=== PATIENT | male | born 1995 | race African-American/Black ===

== ENCOUNTER 2024-09-14 23:14 | Inpatient (IN) | payer OTHER, SELFPAY ==
--- NOTE | 2024-09-14 | ECG_ITS ---
Test Reason : TACHYCARDIA Blood Pressure : */* mmHG Vent. Rate : 160 BPM Atrial Rate : * BPM P-R Int : * ms QRS Dur : 118 ms QT Int : 292 ms P-R-T Axes : * 33 -29 degrees QTcB Int : 476 ms Atrial fibrillation with rapid ventricular response Nonspecific ST and T wave abnormality Abnormal ECG No previous ECGs available Referred By: Generic ED Physician Electronically Signed By: CANDIE BREWER MD
[2024-09-14 23:18] VITALS: BP 150/93; PULSE 112; RESP 18; TEMP 36.6; O2SAT 96; BMI 34.4
[2024-09-14 23:40] VITALS: BP 169/94; PULSE 165; RESP 20
--- NOTE | 2024-09-14 23:42 | ED.ARRPALP ---
HPI - Arrhythmia/Palpitations General Chief Complaint: Arrhythmia/Palpitations Stated Complaint: increased heart rate Time Seen by Provider: 09/14/24 23:34 Source: patient Mode of arrival: ambulatory Limitations: no limitations History of Present Illness ED Provider: Dr. Giulia Xiong HPI narrative: Patient comes to the emergency room complaining of palpitations, mild shortness of breath. Patient states that his symptoms started approximately 40 minutes ago while he was sitting. Patient denies any chest pain. Denies any abdominal pain. Denies fever chills. Related Data Allergies Allergy/AdvReac Type Severity Reaction Status Date / Time No Known Allergies Allergy Verified 09/14/24 23:20 Review of Systems Review of Systems: Constitutional : No Weight loss, No Fever, No Chills, No Night Sweats, No Fatigue, No Malaise ENT/Mouth : No Hearing loss, No Ear Pain, No Nasal Congestion, No Sinus Pain, No Hoarseness, No sore throat, No Rhinorrhea, No Swallowing Difficulty Eyes: No Eye Pain, No Swelling, No Redness, No Foreign Body, No Discharge, No Vision Changes Cardiovascular : No Chest Pain, complaining of mild SOB, Complaining of palpitations Respiratory : No Cough, No Sputum, No Wheezing, No Smoke Exposure, No Dyspnea Gastrointestinal : No Nausea, No Vomiting, No Diarrhea, No Constipation, No abdominal Pain, No Hematochezia, No Melena Genitourinary : no irregular bleeding, No Dysuria, No Urinary Frequency, No Hematuria, No Urinary Incontinence, No Urgency, No Flank Pain, No Urinary Flow Changes, No Hesitancy Musculoskeletal : No joint pain, No Myalgias, No Joint Swelling Skin : No Skin Lesions, No rash Neuro : No Weakness, No Numbness, No Paresthesias, No Loss of Consciousness, No Dizziness, No Headache Psych : No Anxiety/Panic, No Depression, No SI/HI/AH/VH, No Social Issues, Heme/Lymph: No Bruising, No Bleeding,No Lymphadenopathy Endocrine : No Polyuria, No Polydipsia, No Temperature Intolerance [facility] Past Medical History Medical History (Updated 09/15/24 @ 02:01 by Giulia Xiong MD) Hypertension Social History Social History Alcohol intake: current Alcohol intake frequency: a few times a week Smoked in Last 30 Days: No Use of substances other than those prescribed or required for medical reasons: No Advance Directives: No Advance Directives Information Provided: Yes Do you have a plan to hurt others: No Plan Physical Exam Vital Signs: Vital Signs: Last Vital Signs Temp 98.4 F 09/15/24 01:40 Pulse 126 H 09/15/24 01:40 Resp 20 09/15/24 01:40 BP 153/92 H 09/15/24 01:40 Pulse Ox 97 09/15/24 00:16 O2 Del Method Room Air 09/15/24 01:40 BMI result Body Mass Index 34.4 Const: Other: Appearance: Alert. Oriented X3. No acute distress. Eyes: Pupils equal, round and reactive to light. ENT: Pharynx normal. Neck: Normal inspection. Neck supple. No lymph nodes noted. No crepitus CVS: heart rate irregularly irregular, Pulses normal. Normal S1 and S2 Respiratory: No respiratory distress. Breath sounds normal. No Wheezing. No rales Abdomen: Soft and nontender. No rigidity. No distention. Skin: Skin warm and dry. Normal skin color. Normal skin turgor. Extremities: No lower extremity edema. No Lacerations. No Rash Neuro: Oriented X 3. No motor deficit. No sensory deficit. Moving all extremities. No slurred speech. CN 2 through 12 grossly intact Psych: calm, cooperative, normal affect Course Course Course Narrative: patient's heart rate between 160 and 170, EKG shows atrial fibrillation patient receiving 5 mg of metoprolol IV Medications Administered Discontinued Medications Generic Name Dose Route Start Last Admin Trade Name Freq PRN Reason Stop Dose Admin Diltiazem HCl 10 mg 09/15/24 01:32 09/15/24 01:36 Diltiazem Hcl 50 Mg/10 Ml Vial IVPUSH 09/15/24 01:33 10 mg STAT STA Administration Metoprolol Tartrate 5 mg 09/14/24 23:41 09/14/24 23:47 Metoprolol Tartrate 5 Mg/5 Ml Vial IVPUSH 09/14/24 23:42 5 mg ONCE ONE Administration Protocol Metoprolol Tartrate 5 mg 09/15/24 00:31 09/15/24 00:42 Metoprolol Tartrate 5 Mg/5 Ml Vial IVPUSH 09/15/24 00:32 5 mg ONCE ONE Administration Protocol Medical Decision Making Medical Decision Making MDM Narrative: my interpretation of EKG: Atrial fibrillation, heart rate 160, no significant ST changes, QTC 476 patient receiving 5 mg of IV metoprolol patient's heart rate improved from 170s to 130s. Then, patient received a 2nd dose of 5 mg of IV metoprolol. Total of 10. Heart rate still between 120s and 130s. Blood pressure in the 150s, patient not receiving 1 dose of IV Cardizem My interpretation of labs: No significant abnormality in patient's hematology and chemistry, normal troponin. Patient's LFTs are a bit elevated, possible fatty liver. Patient instructed to follow-up outpatient with his PCP. Troponin negative patient's chest to Vasc score is 1 point ( hypertension), oral anticoagulation not indicated after IV Cardizem and 10 mg of metoprolol, patient's heart rate is in the 80s to 100s. Still in AFib. I discussed the patient with Dr. Phipps, patient being admitted Differential Diagnosis Differential Diagnoses: The differential diagnosis associated with the presentation includes ( AFib with RVR, a flutter, SVT) Admission/Observation Consideration of admission/observation: Escalation of care including admission/observation considered Consult Healthcare Provider Management of the patient was discussed with: Hospitalist Lab Data MDM Lab Attestation statement: I reviewed the patient's lab results. 09/14/24 23:40 09/14/24 23:40 Labs: Lab Results 09/14/24 Range/Units 23:40 WBC 8.6 (4.8-10.8) X10*3/uL RBC 5.48 (4.60-5.80) X10*6/uL Hgb 15.6 (14.0-18.0) g/dl Hct 44.8 (42.0-52.0) % MCV 81.8 (80.0-98.0) fL MCH 28.5 (27.0-33.0) pg MCHC 34.8 (31.0-36.0) g/dl RDW 11.8 (11.0-16.0) % Plt Count 317 (160-400) X10*3/uL MPV 9.6 (9.4-12.4) fL Immature Gran % (Auto) 0.2 (0.0-0.4) % Neut % (Auto) 52.3 (45-73) % Lymph % (Auto) 38.2 (20-40) % [place] % (Auto) 7.2 (2-11) % Eos % (Auto) 1.5 (0-4) % Baso % (Auto) 0.6 (0-2) % Lymph # (Auto) 3.3 (1.2-4.9) X10*3/uL [place] # (Auto) 0.6 (0.1-1.2) X10*3/uL Eos # (Auto) 0.1 (0.0-0.4) X10*3/uL Baso # (Auto) 0.1 (0.0-0.2) X10*3/uL Abs Immat Gran (auto) 0.02 (0.00-0.03) X10*3/uL Absolute Neuts (auto) 4.5 (2.0-8.3) x10*3/uL Absolute Nucleated RBC 0.000 (0.0-0.012) X10*3/uL Nucleated RBC % (auto) 0.0 (0.0-0.2) /100WBC Sodium 140 (135-145) mmol/L Potassium 3.7 (3.3-5.1) mmol/L Chloride 100 (96-108) mmol/L Carbon Dioxide 29 (22-29) mmol/L Anion Gap 15 (12-20) BUN 12 (9-16) mg/dL Creatinine 1.21 (0.5-1.4) mg/dL Estim Creat Clear Calc 111.2 Estimated GFR > 60 Random Glucose 130 H (60-115) mg/dL Calcium 10.5 H (8.4-10.2) mg/dL Total Bilirubin 0.3 (0.0-1.0) mg/dL AST 87 H (5-37) U/L ALT 181 H (0-40) U/L Alkaline Phosphatase 100 (39-117) U/L Troponin I High Sens < 2.7 (<3.5-35.0) ng/L Total Protein 8.5 H (6.5-8.0) g/dL Albumin 5.1 H (3.5-5.0) g/dL Independent Interpretation I performed an independent interpretation of an: EKG Critical Care Time Critical Care Time Critical Care Time: Yes Total Critical Care Time: 60 Attestation: I have personally provided critical care time. Time includes review of lab data, radiology results, discussion with consultants, and monitoring for potential decompensation. Intervention performed as documented. Discharge Plan Discharge Clinical Impression: Atrial fibrillation with RVR Patient Disposition: Admitted As Inpatient Print Language: Citizen Of [place]
[2024-09-14 23:44] LABS: Basophils Absolute Auto 0.1 X10*3/uL (0.0-0.2); Basophils Percent Auto 0.6 % (0-2); Eosinophils Absolute Auto 0.1 X10*3/uL (0.0-0.4); Eosinophils Percent Auto 1.5 % (0-4); Hematocrit 44.8 % (42.0-52.0); Hemoglobin 15.6 g/dl (14.0-18.0); Imm Gran Abs Auto 0.02 X10*3/uL (0.00-0.03); Imm Gran Pct Auto 0.2 % (0.0-0.4); Lymphocytes Absolute Auto 3.3 X10*3/uL (1.2-4.9); Lymphocytes Percent Auto 38.2 % (20-40); MANUAL DIFF FLAG NO; Mean Corpuscular HGB Conc 34.8 g/dl (31.0-36.0); Mean Corpuscular Hemoglobin 28.5 pg (27.0-33.0); Mean Corpuscular Volume 81.8 fL (80.0-98.0); Mean Platelet Volume 9.6 fL (9.4-12.4); Monocytes Absolute Auto 0.6 X10*3/uL (0.1-1.2); Monocytes Percent Auto 7.2 % (2-11); Neutrophils Absolute Auto 4.5 x10*3/uL (2.0-8.3); Neutrophils Percent Auto 52.3 % (45-73); Platelet Count 317 X10*3/uL (160-400); Red Blood Count 5.48 X10*6/uL (4.60-5.80); Red Cell Distribution Width 11.8 % (11.0-16.0); White Blood Count 8.6 X10*3/uL (4.8-10.8)
[2024-09-14] MEDS: Metoprolol Tartrate 5 MG/5 ML VIAL IVPUSH (23:47)
[2024-09-14 23:53] VITALS: BP 143/93; PULSE 138; RESP 20; O2SAT 97
[2024-09-15] VITALS (17 sets, daily range): BP systolic 120–170; BP diastolic 64–99; PULSE 71–140; RESP 15–23; TEMP 36.6–37; O2SAT 96–98
--- NOTE | 2024-09-15 | ECG_ITS ---
Test Reason : change in rhythm Blood Pressure : */* mmHG Vent. Rate : 67 BPM Atrial Rate : 67 BPM P-R Int : 180 ms QRS Dur : 94 ms QT Int : 406 ms P-R-T Axes : 43 61 32 degrees QTcB Int : 429 ms Normal sinus rhythm Normal ECG When compared with ECG of 14-Sep-2024 23:23, Sinus rhythm has replaced Atrial fibrillation Vent. rate has decreased by 93 bpm QRS duration has decreased Non-specific change in ST segment in Inferior leads ST elevation now present in Anterior leads Nonspecific T wave abnormality, improved in Inferior leads Nonspecific T wave abnormality no longer evident in Lateral leads Referred By: Raina Lowe Electronically Signed By: CANDIE BREWER MD
[2024-09-15 00:07] LABS: Alanine Aminotransferase 181 U/L (0-40); Albumin Level 5.1 g/dL (3.5-5.0); Alkaline Phosphatase 100 U/L (39-117); Anion Gap 15 (12-20); Aspartate Amino Transferase 87 U/L (5-37); Bilirubin Total 0.3 mg/dL (0.0-1.0); Blood Urea Nitrogen 12 mg/dL (9-16); Calcium 10.5 mg/dL (8.4-10.2); Carbon Dioxide 29 mmol/L (22-29); Chloride 100 mmol/L (96-108); Creatinine Clr Calc Pharmacy 111.2; Estimated Glomerular Filt Rate > 60; Glucose Random 130 mg/dL (60-115); Potassium 3.7 mmol/L (3.3-5.1); Sodium 140 mmol/L (135-145); Total Protein 8.5 g/dL (6.5-8.0)
--- NOTE | 2024-09-15 00:07 | PC.NURSE ---
pt is alert and oriented, skin appropriate for ethnicity, respirations even and unlabored, pt reports around 2300 was resting and started to feel like his heart was racing and having palpitations with slight sob, denies chest pain at this time, hr ranges from 140-160's pt denies hx of A-fib but does reports hx of HTN
[2024-09-15 00:12] LABS: Troponin-I High Sensitivity < 2.7 ng/L (<3.5-35.0)
--- OUTSIDE RECORDS SUMMARY | 2024-09-15 00:38 | XMS_ITS | Clinical Summary ---
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 Name Role Phone Unavailable Primary Care Provider Unavailabl e Allergies No known active allergies Encounters Date Type Department Care Team Description 07/17/2024 5:49 PM EDT - 07/17/2024 8:33 PM EDT Emergency [facility] Emergency Department [address] [place] [address] Discharge Disposition: Left Against Medical Advice/ AMA 07/17/2024 Travel from Last 3 Months Social History Tobacco Use Types Packs/Day Years Used Date Smoking Tobacco: Never Assessed Sex and Gender Information Value Date Recorded Sex Assigned at Male 07/17/2024 7:41 PM EDT Legal Sex Male 5:36 PM EDT Gender Identity Male 07/17/2024 7:41 PM EDT Sexual Orientation Choose not to disclose 2024 7:41 PM EDT Last Filed Vital Signs Vital Sign Reading Time Taken Comments Blood Pressure 162/93 07/17/2024 8:27 PM EDT Pulse 83 07/17/2024 8:27 PM EDT Temperature 35.9 ??C (96.7 ??F) 07/17/2024 5:48 PM ED T Respiratory Rate 17 07/17/2024 8:27 PM EDT Oxygen Saturation 97% 07/17/2024 8:27 PM EDT Inhaled Oxygen Concentration - - Weight - - Height - - Body Mass Index - - Plan of Treatment Health Maintenance Due Date Last Done Comments Hepatitis C Virus Screening 1995 HIV Screening 07/18/2008 DTaP/Tdap/Td Vaccines (1 - Tdap) 07/18/2014 Hepatitis B Vaccines (1 of 3 - 19+ 3-dose series) 07/18/2014 COVID-19 Vaccine (2023-2 5 season) 2024 Influenza Vaccine 11/30/2024 HPV Vaccines Aged Out No longer eligi ble based on patient's age to complete this topic Pneumococcal Vaccine: Pediat marleny (0-5 Years) and At-Risk Patients (6 to 49 Years) Aged Out No longer eligible b ased on patient's age to complete this topic Procedures Procedure Name Priority Date/Time Associated Diagnosis Comments ECG 12-LEAD STAT 07/17/2024 7:12 PM EDT COMPREHENSIVE METABOLIC PANEL STAT 07/17/2024 6:03 PM EDT COMPLETE BLOOD COUNT, WITH DIFFERENTIAL STAT 07/17/2024 6:03 PM EDT from Last 3 Months Results * ECG 12 lead (07/17/2024 7:12 PM EDT) [facility] Ventricular rate 71 BPM EKG [facility] Atrial rate 71 BPM EKG [facility] P-R interval 162 ms EKG [facility] QRS duration 90 ms EKG [facility] Q-T interval 380 ms EKG [facility] QTC calculation (Bazett) 413 ms EKG [facility] P axis 28 degrees EKG [facility] R axis 40 degrees EKG [facility] T axis 6 degrees EKG [facility] 07/17/2024 7:12 PM EDT Narrative EKG [facility] - 07/17/2024 8:17 PM EDT Normal sinus rhythm Normal ECG No previous ECGs available Confirmed by MD Barton Melissa () on 07/17/2024 8:17:39 PM Procedure Note Liza Barton MD - 07/17/2024 Normal sinus rhythm Normal ECG No previous ECGs available Confirmed by MD Barton Melissa () on 07/17/2024 8:17:39 PM Evaristo Escudero PA-C ECG ORDERABLES Final Result EKG [facility] * Complete Blood Count, with Differential (07/17/2024 6:03 PM EDT) White Blood Cell Count 6.6 4.0 - 11.0 Thou/uL 07/17/2024 7:05 PM EDT [facility] Platelet Count 294 150 - 450 Thou/uL 07/17[facility]2024 7[facility] Hemoglobin 15.0 13.0 - 17.7 g/dL 07/17/2024 7:05 PM [facility] Hematocrit 44.7 39.0 - 54.0 % 07/17/2024 7:05 PM [facility] Red Blood Cell Count 5.39 4.50 - 6.20 Mil/uL 07/17/2024 7:05 PM [facility] MCV 83 80 - 100 fL 07/17/2024 7:05 [facility] MCH 27.8 26.0 - 34.0 pg 07/17/2024 7:05 [facility] MCHC 33.6 30.0 - 36.0 g/dL 07/17/2024 7:05 PM [facility] RDW 11.8 11.5 - 14.5 % 07/17/2024 7:05 PM [facility] MPV 10.1 7.5 - 12.5 fL 07/17/2024 7:05 PM [facility] Neutrophils Auto 51.3 % 07/18/19 7:05 PM EDT [facility] Immature Granulocytes 0.3 % 07/17/2024 7:05 PM [facility] Lymphocytes Auto 37.7 % 07/18/19 7:05 PM [facility] Monocytes Auto 7.9 % 07/17/2024 7:05 PM [facility] Eosinophils Auto 2.0 % 07/18/19 7:05 PM [facility] Basophils Auto 0.8 % 07/17/2024 7:05 PM [facility] Abs Neutrophils Auto 3.37 2.00 - 7.50 Thou/uL 07/17/2024 7:05 PM [facility] Abs Immature Granulocytes 0.02 0.00 - 0.10 Thou/uL 07/17/2024 7:05 PM EDT [facility] Abs Lymphocytes Auto 2.47 1.50 - 4.50 Thou/uL 07/17/2024 7:05 PM EDT [facility] Abs Monocytes Auto 0.52 0.20 - 1.50 Thou/uL 07/17/2024 7:05 PM EDT [facility] Abs Eosinophils Auto 0.13 0.00 - 0.70 Thou/uL 07/17/2024 7:05 PM EDT [facility] Abs Basophils Auto 0.05 0.00 - 0.20 Thou/uL 07/17/2024 7:05 PM [facility] Blood Blood specimen / Unknown 07/17/2024 6:03 PM EDT 07/17/2024 6:51 PM EDT Evaristo Escudero PA-C LAB BLOOD ORDERABLES [place] [address], [place] [address] * (ABNORMAL) Comprehensive Metabolic Panel (07/17/2024 6:03 PM EDT) Glucose 92 65 - 99 mg/dL 07/17/2024 7:23 PM [facility] Comment:Fasting: <100 mg/dL, Non-Fasting: <200 mg/dL (ADA 2005) Blood Urea Nitrogen (BUN) 17 8 - 21 mg/dL 07/17/2024 7:23 PM [facility] Creatinine 1.0 0.5 - 1.3 mg/dL 07/17/2024 7:23 PM [facility] eGFR >90 >59 07/17/2024 7:23 PM [facility] Comment:CKD-EPI (2020) in mL /min/1.73 sq meters. Sodium 139 136 - 145 mmol/L 07/17/2024 7:23 PM [facility] Potassium 4.3 3.4 - 5.3 mmol/L 07/17/2024 7:23 PM EDT [facility] Comment:Specimen hemolyzed. Results may be artifactually elevated. Chloride 99 98 - 107 mmol/L 07/17/2024 7:23 PM EDT [facility] CO2 26 22 - 33 mmol/L 07/17/2024 7:23 PM [facility] Calcium 10.7(H) 8.7 - 10.5 mg/dL 07/17/2024 7:23 PM [facility] Alkaline Phosphatase 116 45 - 128 U/L 07/17/2024 7:23 PM [facility] Aspartate Aminotrans (AST) 52 10 - 55 U/L 07/17/2024 7:23 PM [facility] Comment:Specimen hemolyzed. Results may be artifactually elevated. Alanine Aminotrans (ALT) 68(H) 10 - 55 U/L 07/17/2024 7:23 PM [facility] Bilirubin, Total 0.2 0.2 - 1.0 mg/dL 07/17/2024 7:23 PM [facility] Protein, Total 8.2 6.3 - 8.3 g/dL 07/17/2024 7:23 PM [facility] Albumin 5.0 3.5 - 5.0 g/dL 07/17/2024 7:23 PM [facility] BUN/Creatinine Ratio 17 10.0 - 25.0 Ratio 07/17/2024 7:23 PM [facility] Globulin 3.2 1.5 - 3.9 g/dL 07/17/2024 7:23 PM [facility] Albumin/Globulin Ratio 1.6 1.0 - 3.0 Ratio 07/17/2024 7:23 PM [facility] Anion Gap 14 7 - 17 07/17/2024 7:23 PM [facility] Blood Blood specimen / Unknown 07/17/2024 6:03 PM EDT 07/17/2024 6:51 PM EDT Evaristo Escudero PA-C LAB BLOOD ORDERABLES Final R esult [address] [address], [address] [address] from Last 3 Months Insurance [facility]
[2024-09-15] MEDS: Metoprolol Tartrate 5 MG/5 ML VIAL IVPUSH (00:42)
[2024-09-15] MEDS: dilTIAZem HCL 50 MG/10 ML VIAL 10 MG IVPUSH (01:36)
--- NOTE | 2024-09-15 02:06 | PM.IMHP ---
History of Present Illness Date of Service: 09/15/24 Chief Complaint: Palpitations This is a 29-year-old male with pertinent history of hypertension who presents to the emergency department for evaluation of palpitations. Patient is a training nurse graduate and states his symptoms started 10 minutes after he finished his work shift. He had sudden onset of palpitations while he was sitting down. This has never happened before. No history of atrial fibrillation/atrial flutter or any rhythm abnormalities. He was concerned that has heart rate is elevated and he decided to present to the ER. He drinks 1 cup of coffee every day and denies energy drinks. He takes Adderall that he has been taking for the last 5 years. Patient was previously on amlodipine for high blood pressure but recently was switched to losartan-hydrochlorothiazide. He denies fever, chills, chest pain, shortness of breath, abdominal pain, changes in urinary or bowel habits. In the emergency department, EKG with AFib with RVR. Patient was given IV metoprolol x2 and IV diltiazem in the ER. Review of Systems Constitutional: Constitutional: Reports no additional constitutional complaints Cardiovascular: Cardiovascular: Reports rapid heart rate, Reports irregular heart rhythm and Reports palpitations Respiratory: Respiratory: Reports no additional respiratory complaints Gastrointestinal: Gastrointestinal: Reports no additional gastrointestinal complaints Genitourinary: Genitourinary: Reports no additional male genitourinary complaints Endocrine: Endocrine: Reports palpitations [facility] Medical History Hypertension Pertinent family history: No family history of early CAD Social History Alcohol intake: current Alcohol intake frequency: a few times a week Smoked in Last 30 Days: No Use of substances other than those prescribed or required for medical reasons: No Advance Directives: No Advance Directives Information Provided: Yes Do you have a plan to hurt others: No Plan Meds Allergies Allergy/AdvReac Type Severity Reaction Status Date / Time No Known Allergies Allergy Verified 09/14/24 23:20 Physical Exam Vital Signs and Narrative: Vital Signs: Last Vital Signs Temp 98.4 F 09/15/24 01:40 Pulse 126 H 09/15/24 01:40 Resp 20 09/15/24 01:40 BP 153/92 H 09/15/24 01:40 Pulse Ox 97 09/15/24 00:16 O2 Del Method Room Air 09/15/24 01:40 BMI result Body Mass Index 34.4 Middle-aged male lying in bed in no distress Neck supple, no JVD Irregularly irregular, S1-S2 heard Regular breath sounds bilaterally, no wheezing or crackles appreciated Abdomen soft nontender, no guarding, no rigidity Patient is awake, alert and oriented to self, place, time and person ; no focal motor deficit Psych: Normal mood No pedal edema Results Labs 09/14/24 23:40 09/14/24 23:40 Labs: Laboratory Results - last 24 hr 09/14/24 23:40 MCV 81.8 MCH 28.5 MCHC 34.8 RDW 11.8 Plt Count 317 MPV 9.6 Immature Gran % (Auto) 0.2 Neut % (Auto) 52.3 Lymph % (Auto) 38.2 [place] % (Auto) 7.2 Eos % (Auto) 1.5 Baso % (Auto) 0.6 Lymph # (Auto) 3.3 [place] # (Auto) 0.6 Eos # (Auto) 0.1 Baso # (Auto) 0.1 Abs Immat Gran (auto) 0.02 Absolute Neuts (auto) 4.5 Absolute Nucleated RBC 0.000 Nucleated RBC % (auto) 0.0 Anion Gap 15 Estim Creat Clear Calc 111.2 Estimated GFR > 60 Random Glucose 130 H Calcium 10.5 H Total Bilirubin 0.3 AST 87 H ALT 181 H Alkaline Phosphatase 100 Total Protein 8.5 H Albumin 5.1 H Assessment and Plan (1) Atrial fibrillation with RVR: Status: Acute Plan This is a 29-year-old male with pertinent history of hypertension who presents to the emergency department for evaluation of palpitations. #. AFib with RVR, new onset: Will admit patient with cardiac monitoring. Chads Vasc score 1. Rate controlled with IV metoprolol and IV diltiazem in the ER. Consulted Cardiology. Obtaining TSH and echocardiogram. #. Hypertension: Previously on amlodipine which was recently switched to losartan-hydrochlorothiazide. #. Elevated transaminases: Outpatient follow-up Med rec pending DVT prophylaxis: None. Low risk. Patient is ambulatory Full code Quality Stroke Does the patient have a stroke diagnosis?: No VTE Prior VTE?: No VTE Risk Level:: Medical - low VTE Device Contraindication: Treatment Not Indicated VTE Drug Contraindication: Treatment Not Indicated
[2024-09-15] MEDS: 0.9 % Sodium Chloride 1,000 ML 999 ML IV (02:29)
--- NOTE | 2024-09-15 04:04 | PC.NURSE ---
pt is reporting midsternal chest pressure 6/10, pt has not had any chest pain until now , hospitalist aware
[2024-09-15 05:08] LABS: Hematocrit 45.1 % (42.0-52.0); Hemoglobin 15.3 g/dl (14.0-18.0); Mean Corpuscular HGB Conc 33.9 g/dl (31.0-36.0); Mean Corpuscular Hemoglobin 28.2 pg (27.0-33.0); Mean Corpuscular Volume 83.1 fL (80.0-98.0); Mean Platelet Volume 9.4 fL (9.4-12.4); Platelet Count 297 X10*3/uL (160-400); Red Blood Count 5.43 X10*6/uL (4.60-5.80); Red Cell Distribution Width 11.9 % (11.0-16.0); White Blood Count 7.5 X10*3/uL (4.8-10.8)
[2024-09-15 05:29] LABS: Anion Gap 14 (12-20); Blood Urea Nitrogen 13 mg/dL (9-16); Calcium 9.8 mg/dL (8.4-10.2); Carbon Dioxide 27 mmol/L (22-29); Chloride 104 mmol/L (96-108); Creatinine Clr Calc Pharmacy 121.3; Estimated Glomerular Filt Rate > 60; Glucose Random 108 mg/dL (60-115); Potassium 4.6 mmol/L (3.3-5.1); Sodium 140 mmol/L (135-145)
[2024-09-15 05:46] LABS: Thyroid Stimulating Hormone 3.13 uIU/mL (0.32-4.0)
--- NOTE | 2024-09-15 07:00 | CA_ITS ---
Transthoracic Echocardiogram Patient (Last, First, Middle): Larry Samaniego, Gender: Male Date of : 1995 Age: 29 Procedure Date: 09/15/2024 Procedure Type: Transthoracic Echocardiogram Location: ER Height: 177.8 cm Weight: 108.86 kg BSA: 2.26 m2 Heart Rate: bpm BP: 139 / 72 mmHg Unified Communications Engineer: THOMAS Cárdenas MD: Moo Phipps MD Registered Route Associate: Juan Lowry MD Symptoms: afib with rvr Study Quality: Fair/Contrast ECG Rhythm: Atrial Fibrillation Conclusions: - Low normal LV ejection fraction otherwise normal study Findings Procedure Information Contrast agent, definity, is being given per protocol without apparent complications. Left Ventricle Normal left ventricular cavity size. There is normal left ventricular wall thickness. The left ventricular systolic function is low normal. The visually estimated ejection fraction is between 50-55%. Diastolic function is indeterminate on the basis of available data. Right Ventricle Normal right ventricular cavity size and systolic function. Atria Both atria are normal in size. There is no evidence of interatrial shunt. Aortic Valve Normal aortic valve structure and function. There is no aortic valve stenosis. There is no aortic valve regurgitation. Mitral Valve Normal mitral valve structure and function. There is trace mitral valve regurgitation. There is no mitral valve stenosis. Pulmonic Valve The pulmonic valve is likely normal. Tricuspid Valve Normal tricuspid valve structure. There is trace tricuspid valve regurgitation. The right ventricular systolic pressure is normal. The right ventricular systolic pressure is 17 mmHg. Normal right atrial pressure. There is no evidence of pulmonary hypertension. Great Vessels All visible segments of the aorta are normal in size. The pulmonary artery was not well visualized. Venous The inferior vena cava is normal in size and collapses greater than 50% with inspiration. Pericardium/Pleural There is no evidence of pericardial effusion. Prior Study Comparison No prior study available for comparison. Measurements 2D Linear Measurements IVSd: 0.99 0.6-0.9/0.6-1.0 cm LVIDd: 4.47 3.9-5.3/4.2-5.9 cm LVIDd Index: 1.98 2.4-3.2/2.2-3.1 cm/m2 LVIDs: 3.13 2.0-3.6 cm LVPWd: 0.98 0.7-1.1 cm Ao Root: 3.10 2.1-3.5 cm LA Diam: 3.50 2.7-3.8/3.0-4.0 cm LAIDs Index: 1.55 1.5-2.3 cm/m2 LV Mass: 185.02 67-162/88-224 g LV Mass Index: 81.87 43-95/49-115 g/m2 LVOT Diam: 2.10 3.0+(-)1.3 cm 2D Systolic Function EF 4C: 50.70 >55% EF 2C: 56.70 >55% EF BiP: 52.60 >55% Aortic Valve AoV Pk Stephen: 0.88 AoV Mn Stephen: 0.54 AoV VTI: 0.15 AoV Pk Grad: 3.00 Aov Mn Grad: 1.00 WAI Cont.VTI: 3.04 LVOT LVOT Pk Stephen: 0.78 LVOT Mn Stephen: 0.56 LVOT VTI: 0.13 LVOT Pk Grad: 2.00 LVOT Mn Grad: 1.00 LVOT Diam: 2.10 LVOT Area: 3.46 Right Ventricle TAPSE (mm): 20.30 TVS' Stephen: 9.68 Tricuspid Valve TR Pk Stephen: 1.90 TR Pk Grad: 14.00 RA Press: 3.00 RVSP: 17.00 Great Vessels Aorta Ao Root-2D: 3.10 2.0-3.7 cm Ao Asc: 3.10 2.1-3.4 cm Updated in Other Vendor System with Status of Final Juan Lowry MD electronically signed on 09/15/2024 12:31:56 PM with status of Final
[2024-09-15 08:59] LABS: Alanine Aminotransferase 162 U/L (0-40); Albumin Level 4.4 g/dL (3.5-5.0); Alkaline Phosphatase 90 U/L (39-117); Aspartate Amino Transferase 75 U/L (5-37); Bilirubin Direct 0.1 mg/dL (0.0-0.5); Bilirubin Total 0.4 mg/dL (0.0-1.0); Total Protein 7.4 g/dL (6.5-8.0)
--- NOTE | 2024-09-15 09:03 | PHA.MEDREC ---
Pharmacy Consult ? Medication Reconciliation Pharmacy has completed the medication reconciliation. Reviewed med rec done by nursing and spoke to pt to confirm meds.
[2024-09-15] MEDS: Bictegrav/Emtricit/Tenofov Ala TABLET 1 TAB PO (09:48)
[2024-09-15] MEDS: Metoprolol Succinate ER 50 MG TAB.ER.24H PO (09:50)
[2024-09-15 09:55] LABS: Magnesium 2.1 mg/dL (1.6-2.6)
--- NOTE | 2024-09-15 09:56 | P.CONCA_ITS ---
History of Present Illness History of Present Illness Date of Service: 09/15/24 Requesting physician: Raina Lowe Consult reason: atrial fibrillation Chief complaint: Palpitations Narrative: I was consulted to see Larry in cardiology consultation today for new onset atrial fibrillation. 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 He then started noticing symptoms of palpitations and did not feel good. He therefore came to the emergency room was noted to be in atrial fibrillation, new onset with rapid response. He was then given rate control therapy with IV metoprolol and then subsequently get Cardizem with improvement in symptoms have improvement in heart rate but remains in atrial fibrillation this morning. I had history of hypertension and says for long period of time he was on amlodipine however he started giving him leg edema in about 5 days ago this was switch to valsartan- hydrochlorothiazide. Ever since being on that he said he feels tired and thinks that this might have been a contributing factor for his atrial fibrillation. He has no prior history of atrial fibrillation. He has no prior cardiovascular history. He is otherwise very active and has no exertional symptoms of chest pain or shortness of breath. No recent change in his health. Denies any recent fever chills or any infectious symptoms. No recent travel. Patient denies any history of sleep apnea. Denies any history of stimulant use recently. Denies smoking or alcohol use. Review of Systems 2 Constitutional: Constitutional: Reports no additional constitutional complaints Eyes: Eyes: Reports no additional eye complaints Cardiovascular: Cardiovascular: Denies chest pain, Denies lightheadedness, Denies Loss of Consciousness, Reports palpitations and Denies dyspnea Respiratory: Respiratory: Reports no additional respiratory complaints and Denies dyspnea Gastrointestinal: Gastrointestinal: Reports no additional gastrointestinal complaints Genitourinary: Genitourinary: Reports no additional male genitourinary complaints Musculoskeletal: Musculoskeletal: Reports no additional musculoskeletal complaints Integumentary/Breasts: Skin/Breast: Reports system reviewed and no additional complaints, except as docu Neurologic: Reports system reviewed and no additional complaints, except as documented Psychiatric: Psychiatric: Reports no additional psychiatric complaints Endocrine: Endocrine: Reports palpitations Allergic/Immunologic: Allergic/Immunologic: Reports no additional allergic/immunologic complaints [facility] [place] Past Medical History Medical History Hypertension Social History Social History Alcohol intake: current Alcohol intake frequency: a few times a week Patient Tobacco Use Status: Tobacco use Unknown Smoked in Last 30 Days: No Use of substances other than those prescribed or required for medical reasons: No Advance Directives: No Advance Directives Information Provided: Yes Do you have a plan to hurt others: No Plan Nutrition Risks: No Nutritional Risk Meds Allergies Allergy/AdvReac Type Severity Reaction Status Date / Time No Known Allergies Allergy Verified 09/14/24 23:20 Active Medications: Current Medications Acetaminophen (Acetaminophen 325 Mg Tablet) 650 mg PO Q6H PRN PRN Reason: Pain, Mild 1-3,fever,headache Bictegravir/Emtricitabine/Tenofovir (Bictegrav/Emtricit/Tenofov Ala Tablet) 1 tab PO DAILY [facility] Last Admin: 09/15/24 09:48 Dose: 1 tab Calcium Carbonate (Calcium Carbonate 750 Mg Tab.Chew) 750 mg PO Q4H PRN PRN Reason: Heartburn Magnesium Hydroxide (Milk Of Magnesia 30 Ml Oral.Susp) 30 ml PO DAILY PRN PRN Reason: Constipation Melatonin (Melatonin 3 Mg Tablet) 6 mg PO BEDTIME PRN PRN Reason: Insomnia Ondansetron HCl (Ondansetron Hcl 4 Mg/2 Ml Vial) 4 mg IVPUSH Q8H PRN PRN Reason: Nausea and Vomiting Sodium Chloride (0.9 % Sodium Chloride Flush 3 Ml Syringe) 3 ml IVFLUSH QSHIFT [facility] Last Admin: 09/15/24 07:18 Dose: Not Given Home Medications ?Medication ?Instructions ?Recorded ?Confirmed ?Last Taken ?Type bictegravir 50 mg-emtricitabine 1 tab PO DAILY 09/15/24 09/15/24 Unknown History 200 mg-tenofovir alafenam 25 mg tablet (Biktarvy) dextroamphetamine-amphetamine 10 1 tab PO BID 09/15/24 09/15/24 Unknown History mg tablet valsartan 80 1 tab PO DAILY 09/15/24 09/15/24 Unknown History mg-hydrochlorothiazide 12.5 mg tablet Physical Exam 2 Vital Signs: Vital Signs: Last Vital Signs Temp 97.8 F 09/15/24 05:59 Pulse 87 09/15/24 09:50 Resp 15 09/15/24 05:59 BP 139/72 09/15/24 09:50 Pulse Ox 97 09/15/24 05:59 O2 Del Method Room Air 09/15/24 05:59 BMI result Body Mass Index 34.4 Const: General: cooperative, comfortable, no acute distress, awake and Physically active Nutritional Appearance: well nourished and obese O rientation/consciousness: patient oriented x3 Limitations: no limitations HEENT: Head: Yes normocephalic and Yes atraumatic Neck: Neck: Yes trachea midline, Yes supple and Yes no JVD Resp: Effort & Inspection: normal respiratory effort Auscultation: clear to auscultation bilaterally Cardio: Jugular venous distension: no JVD Rate: tachycardic Rhythm: a bnormal rhythm irregularly irregular Heart sounds: S1 normal heart sound present, S2 normal heart sound present, no click, no gallops and no murmurs GI: Auscultation: normal bowel sounds Skin: General skin exam: no rashes or lesions noted Neuro: General: patient oriented x3 and no focal motor deficits Extrem: General: Yes no clubbing, cyanosis or edema Psych: Appearance: grossly normal Objective Labs and Meds 09/15/24 05:03 09/15/24 05:03 Lab results: Laboratory Results - last 24 hr 09/14/24 09/15/24 23:40 05:03 WBC 8.6 7.5 RBC 5.48 5.43 Hgb 15.6 15.3 Hct 44.8 45.1 MCV 81.8 83.1 MCH 28.5 28.2 MCHC 34.8 33.9 RDW 11.8 11.9 Plt Count 317 297 MPV 9.6 9.4 Immature Gran % (Auto) 0.2 Neut % (Auto) 52.3 Lymph % (Auto) 38.2 Reagan % (Auto) 7.2 Eos % (Auto) 1.5 Baso % (Auto) 0.6 Lymph # (Auto) 3.3 Reagan # (Auto) 0.6 Eos # (Auto) 0.1 Baso # (Auto) 0.1 Abs Immat Gran (auto) 0.02 Absolute Neuts (auto) 4.5 Absolute Nucleated RBC 0.000 0.000 Nucleated RBC % (auto) 0.0 0.0 Sodium 140 140 Potassium 3.7 4.6 D Chloride 100 104 Carbon Dioxide 29 27 Anion Gap 15 14 BUN 12 13 Creatinine 1.21 1.11 Estim Creat Clear Calc 111.2 121.3 Estimated GFR > 60 > 60 Random Glucose 130 H 108 Calcium 10.5 H 9.8 D Magnesium 2.1 Total Bilirubin 0.3 0.4 Direct Bilirubin 0.1 AST 87 H 75 H ALT 181 H 162 H Alkaline Phosphatase 100 90 Troponin I High Sens < 2.7 Total Protein 8.5 H 7.4 Albumin 5.1 H 4.4 TSH 3.13 EKG on admission shows atrial fibrillation with rapid ventricular response with nonspecific ST T wave changes Assessment and Plan (1) Atrial fibrillation with RVR: Status: Acute New onset atrial fibrillation this young man with prior history of hypertension which could be a contributing factor to his atrial fibrillation with no recent change function with no recent viral or infectious syndrome. Possibility of underlying sleep apnea exist. This might be 1 of his triggers for atrial fibrillation. Given less than 24 hours of his atrial fibrillation would try to get him out of the atrial fibrillation as it persists. Would prescribe him flecainide 150 mg along with Toprol-XL 50 mg x 1 dose. If he does not cardiovert with flecainide given another dose 150 mg in 1 hour to ride to revert back to normal rhythm. CHADSVASc score of 1. Will give him 1 dose of Xarelto for now in decide whether he requires further dosing based on his echocardiogram finding. Will perform echocardiogram later today to assess for LV systolic function, hypertensive heart disease as well as biatrial chamber size. Management was discussed with him in details. Will need outpatient workup for sleep apnea. This was discussed with him. Magnesium has been requested. Will follow with you Procedures Date of Service Date of Service: 09/15/24
[2024-09-15] MEDS: Flecainide Acetate 50 MG TABLET 150 MG PO ×2 (09:57→11:46)
--- NOTE | 2024-09-15 10:55 | PC.NURSE ---
MD notified patient still remains afib 80's-90's. pt denies any CP or complaints at this time. vitals WNL. second dose of flecinide pending order.
[2024-09-15] MEDS: Rivaroxaban 20 MG TABLET PO (11:46)
--- NOTE | 2024-09-15 12:45 | PC.NURSE ---
notified that patient has converted to NSR 72. Telemetry strips printed. EKG repeat ordered. pt clammy but denies cp or any complaints.
--- NOTE | 2024-09-15 13:17 | P.DS_ITS ---
DS: Providers Provider Date of Service: 09/15/24 Date of admission: 09/15/24 02:04 Date of discharge: 09/15/24 Primary care physician: Unknown Physician Consults: 09/15/24 02:04 Consult to Cardiology Routine Consulting Provider[place] [facility] [place] [facility] Reason for consultation: new onset afib with rvr Has provider been notified: Yes Attending physician on discharge: Manan Orourke Discharging clinician: Raina Lowe DS: Diagnosis Discharge Diagnosis (1) Atrial fibrillation with RVR: Status: Acute DS: Summary Hospital Course Hospital Course: From H&P on the day of admission This is a 29-year-old male with pertinent history of hypertension who presents to the emergency department for evaluation of palpitations. Patient is a training nurse graduate and states his symptoms started 10 minutes after he finished his work shift. He had sudden onset of palpitations while he was sitting down. This has never happened before. No history of atrial fibrillation/atrial flutter or any rhythm abnormalities. He was concerned that has heart rate is elevated and he decided to present to the ER. He drinks 1 cup of coffee every day and denies energy drinks. He takes Adderall that he has been taking for the last 5 years. Patient was previously on amlodipine for high blood pressure but recently was switched to losartan- hydrochlorothiazide. He denies fever, chills, chest pain, shortness of breath, abdominal pain, changes in urinary or bowel habits. In the emergency department, EKG with AFib with RVR. Patient was given IV metoprolol x2 and IV diltiazem in the ER. New onset atrial fibrillation with rapid ventricular response. Patient received 2 doses of metoprolol and diltiazem. Continue to remain in atrial fibrillation. Seen by Cardiology, started on Toprol-XL 50 mg daily. Given 2 doses of oral flecainide and a dose of Xarelto and he converted back to normal sinus rhythm. ECHO obtained, unremarkable. TSH wnl. Magnesium wnl. For hypertension losartan/hydrochlorothiazide combination was discontinued and he will be discharged home with losartan in addition to Toprol-XL. For elevated LFTs patient reports he had an outpatient ultrasound which showed evidence of fatty liver disease although MRI of the abdomen showed an unremarkable liver. Could also be due to Biktarvy. Recommend outpatient follow-up and consideration of hepatitis-B/C screening if not done recently. Time Attestation Discharge Coordination Time (in mins): 32 Quality: Safe Use of Opioids Does Pt have an Active Cancer Diagnosis on the Problem List?: No Quality: Stroke Does the patient have a stroke diagnosis?: No Physical Exam Vital Signs: Vital Signs: Last Vital Signs Temp 98.1 F 09/15/24 13:15 Pulse 71 09/15/24 13:15 Resp 16 09/15/24 13:15 BP 126/83 09/15/24 13:15 Pulse Ox 98 09/15/24 13:15 O2 Del Method Room Air 09/15/24 13:15 BMI result Body Mass Index 34.4 Const: General: cooperative, comfortable, no acute distress, alert and awake Nutritional Appearance: average body habitus Orientation/consciousness: patient oriented x3 Resp: Effort & Inspection: normal respiratory effort, able to speak in complete sentences, no respiratory distress and no use of accessory muscles Cardio: Rate: regular rate GI: Inspection: No distended Neuro: General: patient oriented x3, moves all extremities and CN's II-XI intact bilaterally DS: Data Data Completed and Pending Labs on day of discharge: Laboratory Results - last 24 hr 09/14/24 09/15/24 23:40 05:03 WBC 8.6 7.5 RBC 5.48 5.43 Hgb 15.6 15.3 Hct 44.8 45.1 MCV 81.8 83.1 MCH 28.5 28.2 MCHC 34.8 33.9 RDW 11.8 11.9 Plt Count 317 297 MPV 9.6 9.4 Immature Gran % (Auto) 0.2 Neut % (Auto) 52.3 Lymph % (Auto) 38.2 [facility] % (Auto) 7.2 Eos % (Auto) 1.5 Baso % (Auto) 0.6 Lymph # (Auto) 3.3 [facility] # (Auto) 0.6 Eos # (Auto) 0.1 Baso # (Auto) 0.1 Abs Immat Gran (auto) 0.02 Absolute Neuts (auto) 4.5 Absolute Nucleated RBC 0.000 0.000 Nucleated RBC % (auto) 0.0 0.0 Sodium 140 140 Potassium 3.7 4.6 D Chloride 100 104 Carbon Dioxide 29 27 Anion Gap 15 14 BUN 12 13 Creatinine 1.21 1.11 Estim Creat Clear Calc 111.2 121.3 Estimated GFR > 60 > 60 Random Glucose 130 H 108 Calcium 10.5 H 9.8 D Magnesium 2.1 Total Bilirubin 0.3 0.4 Direct Bilirubin 0.1 AST 87 H 75 H ALT 181 H 162 H Alkaline Phosphatase 100 90 Troponin I High Sens < 2.7 Total Protein 8.5 H 7.4 Albumin 5.1 H 4.4 TSH 3.13 Discharge Plan Discharge Anticipated Discharge Date/Time: 09/15/24 13:11 Patient Disposition: Home, Self-Care Discharge Diagnosis: atrial fibrillation with RVR Referrals: Physician,Unknown J [Primary Care Provider] - 1 Week Discharge Medications: New metoprolol succinate [Toprol XL] 50 mg tablet extended release 24 hr 50 mg PO DAILY Qty: 90 0RF Xarelto 20 mg tablet 20 mg PO QPM Qty: 30 0RF Rx Instructions: must administer with evening meal valsartan 80 mg tablet 80 mg PO DAILY Qty: 90 0RF Continued dextroamphetamine-amphetamine 10 mg tablet 1 tab PO BID Biktarvy 50-200-25 mg tablet 1 tab PO DAILY Discontinued valsartan-hydrochlorothiazide 80-12.5 mg tablet 1 tab PO DAILY Discharge Orders: Discharge Order (Routine); Ordered 09/15/24 Ordered By: Raina Lowe Activity on Discharge: As tolerated Stand Alone Forms: Patient Portal Discharge page Print Language: Faroese Care Plan Goals: See below Health Concerns: Atrial fibrillation with rapid ventricular response, new onset Transaminitis Plan of Treatment: Start taking Toprol-XL 50 mg once daily Start taking valsartan 80 mg once daily, stopped taking valsar manzo/hydrochlorothiazide combination Take Xarelto for 1 month as prescribed. Do not combine blood thinners with NSAIDs (ibuprofen, motrin, naproxyn etc) for transaminitis - likely due to fatty liver dz and or biktarvy. recommend screening for hepatitis B/C if not done recently - discuss with prescribing provider Assessment: See discharge summary
--- NOTE | 2024-09-15 14:54 | MHC.CM.PN ---
PT DISCHARGED PRIOR TO BEING SEEN BY CM CM DID CONFIRM PT WAS PROVIDED WITH A COUPON FOR HIS XARELTO RX
== END 2024-09-15 13:55 | disposition home or self-care (01) | DRG 310 ==
LOC: HO.ED 09-15 02:01 → HO.EDOVER 09-15 07:13
PROVIDERS: Admitting Provider Student in an Organized Health Care Education/Training Program; Emergency Provider Emergency Medicine; Visit Provider Physician Assistant Medical
DX: I48.91 Unspecified atrial fibrillation (principal); I10 Essential (primary) hypertension; K76.0 Fatty (change of) liver, not elsewhere classified; Z79.899 Other long term (current) drug therapy
CPT/HCPCS: 36415; 80048; 80053; 80076; 83735; 84443; 84484; 85025; 85027; 93005; 93306; 99222; 99285; Q9957

== ENCOUNTER → 2024-09-14 23:23 | Outpatient (BNV) | payer OTHER, SELFPAY | PROVIDERS: Admitting Provider Student in an Organized Health Care Education/Training Program; Emergency Provider Emergency Medicine; Visit Provider Internal Medicine Cardiovascular Disease | DX: I48.91 Unspecified atrial fibrillation (principal) | CPT/HCPCS: 93010 ==

== ENCOUNTER → 2024-09-15 00:27 | Outpatient (BNV) | payer OTHER, SELFPAY | PROVIDERS: Emergency Provider Emergency Medicine; Visit Provider Student in an Organized Health Care Education/Training Program | DX: I48.91 Unspecified atrial fibrillation (principal) | CPT/HCPCS: 99235; 99499 ==

== ENCOUNTER → 2024-09-15 02:04 | Outpatient (BNV) | payer OTHER, SELFPAY | PROVIDERS: Admitting Provider Student in an Organized Health Care Education/Training Program; Emergency Provider Emergency Medicine; Visit Provider Internal Medicine Cardiovascular Disease | DX: I49.9 Cardiac arrhythmia, unspecified (principal) | CPT/HCPCS: 93010; 93306; 99222 ==

== ENCOUNTER → 2024-09-28 11:09 | Outpatient (REF) | payer OTHER, SELFPAY ==
--- OUTSIDE RECORDS SUMMARY | 2024-09-28 12:08 | XMS_ITS ---
Author Name [facility] Organization Unknown Results Test Name/Text Value Interpretation Date Range Source Sodium SerPl-sCnc 139mmol/L Normal [id number] 136 - 145 [facility] CO2 SerPl-sCnc 26mmol/L Normal [id number] 22 - 33 HH CCT Glucose SerPl-mCnc 92mg/dL Normal [id number] 65 - 99 [facility] BUN SerPl-mCnc 17mg/dL Normal [id number] 8 - 21 HH CCT Calcium SerPl-mCnc 10.7mg/dL Above high normal [id number] 8.7 - 10.5 [facility] Albumin SerPl-mCnc 5g/dL Normal [id number] 3.5 - 5 [facility] Albumin/Glob SerPl 1.6Ratio Normal [id number] 1 - 3 [facility] AST SerPl-cCnc 52U/L Normal [id number] 10 - 55 HH CCT Anion Gap Bld-sCnc 14 Normal [id number] 7 - 17 [facility] ALT SerPl-cCnc 68U/L Above high normal [id number] 10 - 55 [facility] BUN/Creat SerPl 17Ratio Normal [id number] 10 - 25 H [facility]CT GFR/BSA.pred SerPlBld QEX-GFS-EeVXqw 90 Normal [id number] 59 - [facility] ALP SerPl-cCnc 116U/L Normal [id number] 45 - 128 HH CCT Chloride SerPl-sCnc 99mmol/L Normal [id number] 98 - 10 7 [facility] Globulin Ser Calc-mCnc 3.2g/dL Normal [id number] 1.5 - 3.9 [facility]CT Bilirub SerPl-mCnc 0.2mg/dL Normal [id number] 0.2 - 1 [facility] Potassium SerPl-sCnc 4.3mmol/L Normal [id number] 3.4 - 5.3 [facility] Prot SerPl-mCnc 8.2g/dL Normal [id number] 6.3 - 8.3 H HCCT Creat SerPl-mCnc 1mg/dL Normal [id number] 0.5 - 1.3 [facility] WBC num Bld Auto 6.6Thou/uL Normal [id number] 4 - 11 [facility] Lymphocytes num Bld Auto 2.47Thou/uL Normal [id number] 1.5 - 4.5 [facility] Monocytes num Bld Auto 0.52Thou/uL Normal [id number] 0. 2 - 1.5 [facility] Neutrophils/leuk NFr Bld Auto 51.3% Normal [id number] H[facility] MCV RBC Auto 83fL Normal [id number] 80 - 100 [facility] T Imm Granulocytes num Bld Auto 0.02Thou/uL Normal [id number] 0 - 0.1 [facility] Eosinophil num Bld Auto 0.13Thou/uL Normal [id number] 0 - 0.7 [facility] Lymphocytes/leuk NFr Bld Auto 37.7% Normal [id number] [facility] Hct VFr Bld Auto 44.7% Normal [id number] 39 - 54 [facility] Hgb Bld-mCnc 15g/dL Normal [id number] 13 - 17.7 [facility] T PMV Bld Auto 10.1fL Normal [id number] 7.5 - 12.[address] Basophils/leuk NFr Bld Auto 0.8% Normal [id number] [facility] MCH RBC Qn Auto 27.8pg Normal [id number] 26 - 34 H [facility] Platelet num Bld Auto 294Thou/uL Normal [id number] 150 - 450 [facility] RDW RBC Auto-Rto 11.8% Normal [id number] 11.5 - 14. 5 [facility] Eosinophil/leuk NFr Bld Auto 2% Normal [id number] [facility] Neutrophils num Bld Auto 3.37Thou/uL Normal [id number] 2 - 7.5 H[facility]CT MCHC RBC Auto-mCnc 33.6g/dL Normal [id number] 30 - 36 [facility] Monocytes/leuk NFr Bld Auto 7.9% Normal [id number] H[facility] RBC num Bld Auto 5.39Mil/uL Normal [id number] 4.5 - 6.2 [facility] Basophils num Bld Auto 0.05Thou/uL Normal [id number] 0 - 0.2 [facility] Imm Granulocytes/leuk NFr Bld Auto 0.3% Normal [id number] [facility] Encounters Encounter Type Encounter Reason Primary Diagnosis Location Date Emergency Hypertension Hypertension [facility] 07/17/2024 Care Team Organization Name Specialty Phone Email Start Date End Da te [facility] 2024 08/19/2024 [facility] 07/18/2024
== END ==
LOC: HO.CARD 11:09
PROVIDERS: PCP Nurse Practitioner Family; Visit Provider Internal Medicine Cardiovascular Disease
DX: I48.91 Unspecified atrial fibrillation (principal); R40.0 Somnolence
CPT/HCPCS: 93242

== ENCOUNTER → 2024-09-28 11:16 | Outpatient (BNV) | payer OTHER, SELFPAY | PROVIDERS: PCP Nurse Practitioner Family; Visit Provider Internal Medicine Cardiovascular Disease | DX: R00.1 Bradycardia, unspecified (principal) | CPT/HCPCS: 93244 ==

== ENCOUNTER 2024-10-16 11:36 | Outpatient (AMB) | payer OTHER, SELFPAY ==
--- NOTE | 2024-10-16 11:37 | MHC.OFFVIS ---
Vital Signs 10/16/24 11:39 Height 5 ft 10 in Weight 249 lb 1.957 oz BMI 35.7 BP 110/68 Blood Pressure Location Lt brachial Position Sitting Pulse 72 Intake Visit Reasons: 4 wk f/up s/p sleep / holter Intake Note: 4 week follow-up after sleep and holter feeling good [employer] Required: No Allergies No Known Allergies Allergy (Verified 09/14/24 23:20) Medication List - Last Reconciled 10/16/24 by Juan Lowry MD [id number] ala 50-200-25 mg (Biktarvy) 1 tab PO DAILY metoprolol succinate ER (Toprol XL) 50 mg PO DAILY rivaroxaban (Xarelto) 20 mg PO QPM valsartan 80 mg PO DAILY HPI Comments Details: Larry comes for follow-up. He has not had any recurrent episodes of atrial fibrillation since the ED presentation. He has occasional fluttering in his chest which on the EKG monitoring by electronic stethoscope shows isolated PACs. He is currently on Xarelto. He is taking currently Toprol as well as valsartan. Blood pressure is controlled. He has recent echocardiogram showed low normal LV ejection fraction with normal biatrial chamber size with no major valvular abnormality. Holter monitor was very benign. He is scheduled to undergo sleep study in near future. He is also started exercising more regularly and following lifestyle modification. [facility] Medical History Paroxysmal atrial fibrillation Atrial fibrillation with RVR Hypertension Social History Alcohol intake: current Alcohol intake frequency: a few times a week Patient Tobacco Use Status: Tobacco use Unknown Review of Systems Const Denies chills, Denies fatigue, Denies fever(s), Denies frequent falls, Denies weakness, Denies weight gain and Denies weight loss ENT Denies dizziness Card Denies chest pain, Denies leg edema, Denies lightheadedness, Denies palpitations, Denies dyspnea, Denies dyspnea on exertion, Denies orthopnea and Denies other (loss of consciousness) Resp Denies cough, Denies dyspnea and Denies dyspnea on exertion GI Denies hematochezia and Denies change in stool character Musc Denies abnormal gait, Denies muscle weakness, Denies numbness, Denies radiating pain into limb and Denies tingling Neuro Denies abnormal gait, Denies dizziness, Denies frequent falls, Denies numbness, Denies tingling and Denies weakness Endo Denies fatigue and Denies palpitations Physical Exam Vital Signs: Last Vital Signs Pulse 72 10/16/24 11:39 BP 110/68 10/16/24 11:39 BMI result Body Mass Index 35.7 Const General: cooperative, comfortable, no acute distress, alert and awake Nutritional Appearance: obese Orientation/consciousness: patient oriented x3 Neck Neck: Yes trachea midline, Yes supple and Yes no JVD Resp Effort & Inspection: normal respiratory effort Auscultation: clear to auscultation bilaterally Cardio Jugular venous distension: no JVD Palpation: normal PMI Rate: regular rate Rhythm: regular rhythm Heart sounds: S1 normal heart sound present, S2 normal heart sound present, no click, no gallops and no murmurs GI Auscultation: normal bowel sounds Skin General skin exam: no rashes or lesions noted Neuro General: patient oriented x3 and no focal motor deficits Extrem General: Yes no clubbing, cyanosis or edema Psych Appearance: grossly normal Office Procedures EKG Details: EKG shows normal sinus rhythm with small Q-waves, in the inferior leads most likely due to body habitus [id number], Complete Assessment & Plan Assessment & Plan (1) Paroxysmal atrial fibrillation: Code(s): I48.0 - Paroxysmal atrial fibrillation Category: Medical Plan: Highly symptomatic paroxysmal atrial fibrillation, new onset recently. Subsequently echocardiogram shows normal structure of the heart. No recurrent episodes except for isolated PACs. We discussed about management and given his age most likely management would be rhythm control approach. He is highly symptomatic at this point time. He has isolated PACs. We discussed pathophysiology of atrial fibrillation especially in young people most likely triggered from pulmonary vein triggers. We discussed about ablation as a treatment option to reduce risk of future and recurrent atrial fibrillation. At this point time I have advised him to be referred to electrophysiology for consultation. Will give him pill in the pocket approach with flecainide and instructions were provided S2 use. Continue metoprolol therapy. Continue aggressive blood pressure control. Continue lifestyle modification with weight loss. Continue to avoid stimulants. Sleep study to be pursued. If he goes into recurrent atrial fibrillation advised him to also start Xarelto at that time. He does not require long-term oral anticoagulation at risk for thromboembolic complication is low. (2) Hypertension: Code(s): I10 - Essential (primary) hypertension Category: Medical Plan: Hypertension which is currently well optimized on current therapy. Continue lifestyle modification with use of low-salt diet and improve in his exercise capacity and losing weight. Sleep study as prescribed. Continue current valsartan and metoprolol therapy. Will follow up in the clinic in 6 months time, sooner p.r.n.. Thank you for allowing me to partake in his care Medications: New flecainide Can take twice an hour apart if remains in atrial fibrillation after the 1st dosing 150 mg (3 x 50 mg) PO ONCE PRN 20 tabs 0RF Recurrent atrial fibrillation Refilled rivaroxaban (Xarelto) must administer with evening meal 20 mg PO QPM 30 tabs 1RF Coding Level of Care Code Est Pt Level 4 (31219) Complex EM visit Add On G2211 Diagnoses Paroxysmal atrial fibrillation I48.0 Hypertension I10 CPT Codes EKG - CPT: 59830-[id number], Complete ([id number])
[2024-10-16 11:39] VITALS: BP 110/68; PULSE 72; BMI 35.7
--- OUTSIDE RECORDS SUMMARY | 2024-10-16 13:14 | XMS_ITS | Clinical Summary ---
Author Organization [facility] Address [address] [place] [address] Care Team Providers Care Director Of Estate Name Role Phone Unavailable Primary Care Provider Unavailabl e Allergies No known active allergies Encounters Date Type Department Care Team Description 07/17/2024 5:49 PM EDT - 07/17/2024 8:33 PM EDT Emergency [facility] Emergency Department [address] [place] [address] Discharge Disposition: Left Against Medical Advice/ AMA [...] ECG 12 lead (07/17/2024 7:12 PM EDT) [facility] Ventricular rate 71 BPM EKG [facility] Atrial rate 71 BPM EKG [facility] P-R interval 162 ms EKG [facility] QRS duration 90 ms EKG [facility] Q-T interval 380 ms EKG [facility] QTC calculation (Bazett) 413 ms EKG [facility] P axis 28 degrees EKG [facility] R axis 40 degrees EKG [facility] T axis 6 degrees EKG [facility] 07/17/2024 7:12 PM EDT Narrative EKG [facility] - 07/17/2024 8:17 PM EDT Normal sinus rhythm Normal ECG No previous ECGs available Confirmed by MD Barton Melissa () on 07/17/2024 8:17:39 PM Procedure Note Liza Barton MD - 07/17/2024 Normal sinus rhythm Normal ECG No previous ECGs available Confirmed by MD Barton Melissa () on 07/17/2024 8:17:39 PM Evaristo Escudero PA-C ECG ORDERABLES Final Result EKG [facility] * Complete Blood Count, with Differential (07/17/2024 6:03 PM EDT) White Blood Cell Count 6.6 4.0 - 11.0 Thou/uL 07/17/2024 7:05 PM EDT [facility] Platelet Count 294 150 - 450 Thou/uL [facility] Hemoglobin 15.0 13.0 - 17.7 g/dL 07/17/2024 7:05 PM [facility] Hematocrit 44.7 39.0 - 54.0 % 07/17/2024 7:05 PM [facility] Red Blood Cell Count 5.39 4.50 - 6.20 Mil/uL 07/17/2024 7:05 PM [facility] MCV 83 80 - 100 fL [facility]/17[facility]2024 [facility] MCH 27.8 26.0 - 34.0 pg 07/17/2024 7:[facility] MCHC 33.6 30.0 - 36.0 g/dL 07/17/2024 7:[facility] RDW 11.8 11.5 - 14.5 % 07/17/2024 7:05 PM [facility] MPV 10.1 7.5 - 12.5 fL 07/17/2024 7:05 PM [facility] Neutrophils Auto 51.3 % 07/18/19 7:05 PM EDT [facility] Immature Granulocytes 0.3 % 07/17/2024 7:05 PM [facility] Lymphocytes Auto 37.7 % 07/18[facility] Monocytes Auto 7.9 % 07/17/2024 7:05 PM [facility] Eosinophils Auto 2.0 % 07/18/19 7:05 PM [facility] Basophils Auto 0.8 % 07/17/2024 7:05 PM [facility] Abs Neutrophils Auto 3.37 2.00 - 7.50 Thou/uL 07/17/2024 7:05 PM [facility] Abs Immature Granulocytes 0.02 0.00 - 0.10 Thou/uL 07/17/2024 7:05 PM EDT [facility] Abs Lymphocytes Auto 2.47 1.50 - 4.50 Thou/uL 07/17/2024 7:05 PM EDT [facility] Abs Monocytes Auto 0.52 0.20 - 1.50 Thou/uL 07/17/2024 7:05 PM EDT [facility] Abs Eosinophils Auto 0.13 0.00 - 0.70 Thou/uL 07/17/2024 7:05 PM EDT [facility] Abs Basophils Auto 0.05 0.00 - 0.20 Thou/uL 07/17/2024 7[facility] Blood Blood specimen / Unknown 07/17/2024 6:03 PM EDT 07/17/2024 6:51 PM EDT Evaristo Escudero PA-C LAB BLOOD [place] [address], [place] [address] * (ABNORMAL) Comprehensive Metabolic Panel (07/17/2024 6:03 PM EDT) Glucose 92 65 - 99 mg/dL 07/17/2024 7:23 PM [facility] Comment:Fasting: <100 mg/dL, Non-Fasting: <200 mg/dL (ADA 2005) Blood Urea Nitrogen (BUN) 17 8 - 21 mg/dL 07/17/2024 7:23 PM [facility] Creatinine 1.0 0.5 - 1.3 mg/dL 07/17/2024 7:23 PM [facility] eGFR >90 >59 07/17/2024 7:23 PM [facility] Comment:CKD-EPI (2020) in mL /min/1.73 sq meters. Sodium 139 136 - 145 mmol/L 07/17/2024 7:23 PM [facility] Potassium 4.3 3.4 - 5.3 mmol/L 07/17/2024 7:23 PM EDT [facility] Comment:Specimen hemolyzed. Results may be artifactually elevated. Chloride 99 98 - 107 mmol/L 07/17/2024 7:23 PM EDT [facility] CO2 26 22 - 33 mmol/L 07/17/2024 7:23 PM [facility] Calcium 10.7(H) 8.7 - 10.5 mg/dL 07/17/2024 7:23 PM [facility] Alkaline Phosphatase 116 45 - 128 U/L 07/17/2024 7:23 PM [facility] Aspartate Aminotrans (AST) 52 10 - 55 U/L 07/17/2024 7:23 PM [facility] Comment:Specimen hemolyzed. Results may be artifactually elevated. Alanine Aminotrans (ALT) 68(H) 10 - 55 U/L 07/17/2024 7:23 PM [facility] Bilirubin, Total 0.2 0.2 - 1.0 mg/dL 07/17/2024 7:23 PM [facility] Protein, Total 8.2 6.3 - 8.3 g/dL 07/17/2024 7:23 PM [facility] Albumin 5.0 3.5 - 5.0 g/dL 07/17/2024 7:23 PM [facility] BUN/Creatinine Ratio 17 10.0 - 25.0 Ratio 07/17/2024 7:23 PM [facility] Globulin 3.2 1.5 - 3.9 g/dL 07/17/2024 7:23 PM [facility] Albumin/Globulin Ratio 1.6 1.0 - 3.0 Ratio 07/17/2024 7:23 PM [facility] Anion Gap 14 7 - 17 07/17/2024 7:23 PM [facility] Blood Blood specimen / Unknown 07/17/2024 6:03 PM EDT 07/17/2024 6:51 PM EDT Evaristo Escudero PA-C LAB BLOOD ORDERABLES Final R esult [address] [address], [address] [address] from Last 3 Months Insurance [facility]
== END 2024-10-16 12:04 | disposition home or self-care (01) ==
PROVIDERS: PCP Nurse Practitioner Family; Visit Provider Internal Medicine Cardiovascular Disease
DX: I48.0 Paroxysmal atrial fibrillation (principal); I10 Essential (primary) hypertension
CPT/HCPCS: 93010; 99214; G2211

== ENCOUNTER → 2024-10-16 11:36 | Outpatient (BNVA) | payer OTHER, SELFPAY | PROVIDERS: PCP Nurse Practitioner Family; Visit Provider Internal Medicine Cardiovascular Disease | DX: I48.0 Paroxysmal atrial fibrillation (principal) | CPT/HCPCS: 93005 ==

== ENCOUNTER → 2024-10-19 20:30 | Outpatient (REF) | payer OTHER, SELFPAY | LOC: HO.SL 20:30 | PROVIDERS: PCP Nurse Practitioner Family; Visit Provider Internal Medicine Cardiovascular Disease | DX: G47.33 Obstructive sleep apnea (adult) (pediatric) (principal); I48.91 Unspecified atrial fibrillation; R40.0 Somnolence | CPT/HCPCS: 95810 ==

== ENCOUNTER → 2024-10-19 21:21 | Outpatient (BNV) | payer OTHER, SELFPAY | PROVIDERS: PCP Nurse Practitioner Family; Visit Provider Internal Medicine | DX: G47.33 Obstructive sleep apnea (adult) (pediatric) (principal) | CPT/HCPCS: 95810 ==

== ENCOUNTER 2025-01-11 12:54 | Outpatient (AMB) | payer OTHER, SELFPAY ==
--- NOTE | 2025-01-11 13:00 | A.OFFVIS_ITS ---
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 Accompanied by: Self / Same As Patient Allergies No Known Allergies Allergy (Verified 09/14/24 23:20) Medication List - Last Reconciled 01/11/25 by ARMEN Krishnan [id number] ala 50-200-25 mg (Biktarvy) 1 tab PO DAILY flecainide 150 mg (3 x 50 mg) PO ONCE PRN metoprolol succinate ER (Toprol XL) 50 mg PO DAILY rivaroxaban (Xarelto) 20 mg PO QPM valsartan 80 mg PO DAILY HPI HPI f/u fast heart rate was in ED at [facility]: Details: Larry is a 29-year-old female with past medical history of hypertension, paroxysmal atrial fibrillation who presents for follow-up after recent recurrent heart palpitations. Today he reports that he was having palpitations over the weekend it when he was in [place]. He went to [facility] and had EKG done showing sinus tachycardia. He says he can feel when he has a having PACs and when he is having AFib. He describes having an episode of AFib earlier this week that lasted a few hours. He did take flecainide 50 mg x2 doses an hour apart and his heart settled down. He does have recordings on his phone which I reviewed, 3 are showing sinus rhythm and 1 appears to be paroxysmal atrial fibrillation. When he has AFib he notices the palpitations and feels mildly lightheaded and short of breath if he is doing activities. Otherwise no shortness of breath, chest discomfort and normally has good activity tolerance. He is compliant with his meds. He did restart the blood thinner. He did receive a call from [facility] electrophysiology but he did not make an appointment. He does not want to go to [facility] since he works there. He wants to be referred to [facility] and says his insurance will cover care done there. [facility] Medical History Paroxysmal atrial fibrillation Atrial fibrillation with RVR Hypertension Social History Alcohol intake: current Alcohol intake frequency: a few times a week Patient Tobacco Use Status: Tobacco use Unknown Review of Systems Const All systems reviewed & are unremarkable except as noted in HPI and below Denies chills, Denies fatigue, Denies fever(s), Denies frequent falls, Denies weakness, Denies weight gain and Denies weight loss ENT Denies dizziness Card Reports chest pain, Reports chest pain at rest, Reports chest pain with activity, Reports rapid heart rate, Denies leg edema, Denies lightheadedness, Reports palpitations, Denies dyspnea and Denies dyspnea on exertion Resp Denies cough, Denies dyspnea and Denies dyspnea on exertion GI Denies hematochezia Musc Denies abnormal gait, Denies muscle weakness, Denies numbness, Denies radiating pain into limb and Denies tingling Neuro Denies abnormal gait, Denies dizziness, Denies frequent falls, Denies numbness, Denies tingling and Denies weakness Endo Denies fatigue and Reports palpitations Physical Exam Vital Signs: Last Vital Signs Pulse 63 01/11/25 13:04 BP 120/90 H 01/11/25 13:04 BMI result Body Mass Index 35.4 Const General: cooperative, healthy appearing, comfortable and no acute distress Orientation/consciousness: patient oriented x3 Neck Neck: Yes normal visual inspection Resp Effort & Inspection: normal respiratory effort Auscultation: clear to auscultation bilaterally, no crackles, no rales, no rhonchi and no wheezes Cardio Rate: regular rate Rhythm: regular rhythm Heart sounds: S1 normal heart sound present, S2 normal heart sound present, no gallops, no murmurs and no rubs Neuro General: patient oriented x3 Extrem General: Yes normal to inspection, No no pedal edema and No calf tenderness Psych Appearance: grossly normal Mental Status: mental status grossly normal Speech and movement: Normal speech and movement present Office Procedures EKG Details: Today, read by me, normal sinus rhythm, possible inferior infarct, ST and T-wave abnormality lead 3 and AVF, rate 63, QTC 392 millisecond [id number], Complete Assessment & Plan Assessment & Plan (1) Paroxysmal atrial fibrillation: Code(s): I48.0 - Paroxysmal atrial fibrillation Category: Medical Plan: Newer finding of paroxysmal atrial fibrillation treated with rhythm control. He was put on metoprolol and given flecainide to use as pill in the pocket for recurrent episodes. Echocardiogram 09/15/2024 shows EF 50-55%. Holter monitor done 09/28/2024 for 3 days shows sinus rhythm with average heart rate 71. Sleep study was done 10/19/2024 showing no sleep apnea. He had done well till recently when he had recurrent heart palpitations. He does have a stethoscope that records his heart rhythm. He has 1 strip that appears to be atrial fibrillation. EKG done today showing sinus rhythm rate 63. Will have him start flecainide 50 mg b.i.d., can take an additional 2 tablets if needed for PAF. Office EKG in 1 week. Continue metoprolol. Continue Xarelto for anticoagulation. EP referral already made however he wants to go to [facility] instead of [facility]. Referral order changed and message sent to our rocket scientist. He will not need anticoagulation long-term due to low CHADS-VASc score of 1 with hypertension. Cardiology follow-up 3-4 months, sooner if needed. (2) Hypertension: Code(s): I10 - Essential (primary) hypertension Category: Medical Plan: Blood pressure goal less than 130/80. Blood pressure today 120/90. Prior reading normal at 110/68. Continue valsartan and metoprolol. He does report having anxiety about his health and when coming to visits. Plan Time spent on chart review, documentation, interview and assessment Orders: Referrals Cardiac Electrophysiology Referral I48.0 - Paroxysmal atrial fibrillation Medications: Changed From flecainide Can take twice an hour apart if remains in atrial fibrillation after the 1st dosing 150 mg (3 x 50 mg) PO ONCE PRN 20 tabs 0RF Recurrent atrial fibrillation To flecainide 50 mg PO Q12H 60 tabs 5RF 30 days Coding Level of Care Code Est Pt Level 4 (93668) Complex EM visit Add On G2211 Diagnoses Paroxysmal atrial fibrillation I48.0 Hypertension I10 CPT Codes EKG - CPT: 32192-[id number], Complete ([id number]) Time Spent (min) 28
[2025-01-11 13:04] VITALS: BP 120/90; PULSE 63; BMI 35.4
--- OUTSIDE RECORDS SUMMARY | 2025-01-11 15:17 | XMS_ITS ---
Author Name [facility] Organization Unknown Results Test Name/Text Value Interpretation Date Range Source Sodium SerPl-sCnc 139.0 mmol/L Normal 07/17/2024 136 - 14 5 H[facility] CO2 SerPl-sCnc 26.0 mmol/L Normal 07/17/2024 22 - 33 HH CCT Glucose SerPl-mCnc 92.0 mg/dL Normal 07/17/2024 65 - 99 [facility]CT BUN SerPl-mCnc 17.0 mg/dL Normal 07/17/2024 8 - [address] Calcium SerPl-mCnc 10.7 mg/dL Above high normal 07/17/2024 8 .7 - 10.5 H[facility]CT Albumin SerPl-mCnc 5.0 g/dL Normal 07/17/2024 3.5 - 5 [facility] Albumin/Glob SerPl 1.6 Ratio Normal 07/17/2024 1 - 3 H[facility]CT AST SerPl-cCnc 52.0 U/L Normal 07/17/2024 10 - 55 [facility]CC T Anion Gap Bld-sCnc 14.0 Normal 07/17/2024 7 - 17 H[facility]CT ALT SerPl-cCnc 68.0 U/L Above high normal 07/17/2024 10 - 5 5 [facility] BUN/Creat SerPl 17.0 Ratio Normal 07/17/2024 10 - 25 HH CCT GFR/BSA.pred SerPlBld [id number] >90.0 Normal 07/17/2024 59 - HHCCT ALP SerPl-cCnc 116.0 U/L Normal 07/17/2024 45 - 128 [facility] T Chloride SerPl-sCnc 99.0 mmol/L Normal 07/17/2024 98 - 10 7 [facility] Globulin Ser Calc-mCnc 3.2 g/dL Normal 07/17/2024 1.5 - 3.9 H[facility]CT Bilirub SerPl-mCnc 0.2 mg/dL Normal 07/17/2024 0.2 - 1 [facility] Potassium SerPl-sCnc 4.3 mmol/L Normal 07/17/2024 3.4 - 5 .3 HHCCT Prot SerPl-mCnc 8.2 g/dL Normal 07/17/2024 6.3 - 8.[address] Creat SerPl-mCnc 1.0 mg/dL Normal 07/17/2024 0.5 - 1.3 HH CCT WBC num Bld Auto 6.6 Thou/uL Normal 07/17/2024 4 - 11 [facility] Lymphocytes num Bld Auto 2.47 Thou/uL Normal 07/17/2024 1.5 - 4.5 [facility] Monocytes num Bld Auto 0.52 Thou/uL Normal 07/17/2024 0.2 - 1.5 [facility] Neutrophils/leuk NFr Bld Auto 51.3 % Normal 07/17/2024 [facility] MCV RBC Auto 83.0 fL Normal 07/17/2024 80 - 100 [facility] Imm Granulocytes num Bld Auto 0.02 Thou/uL Normal 07/17/2024 0 - 0.1 H[facility]CT Eosinophil num Bld Auto 0.13 Thou/uL Normal 07/17/2024 0 - 0.7 [facility]CT Lymphocytes/leuk NFr Bld Auto 37.7 % Normal 07/17/2024 H[facility]CT Hct VFr Bld Auto 44.7 % Normal 07/17/2024 39 - 54 HH CCT Hgb Bld-mCnc 15.0 g/dL Normal 07/17/2024 13 - 17.7 H[facility]CT PMV Bld Auto 10.1 fL Normal 07/17/2024 7.5 - 12.5 [facility]CT Basophils/leuk NFr Bld Auto 0.8 % Normal 07/17/2024 H[facility]CT MCH RBC Qn Auto 27.8 pg Normal 07/17/2024 26 - [address] Platelet num Bld Auto 294.0 Thou/uL Normal 07/17/2024 150 - 450 H[facility]CT RDW RBC Auto-Rto 11.8 % Normal 07/17/2024 11.5 - 14.5 H[facility]CT Eosinophil/leuk NFr Bld Auto 2.0 % Normal 07/17/2024 [facility]CT Neutrophils num Bld Auto 3.37 Thou/uL Normal 07/17/2024 2 - 7.5 H[facility]CT MCHC RBC Auto-mCnc 33.6 g/dL Normal 07/17/2024 30 - 36 [facility]CT Monocytes/leuk NFr Bld Auto 7.9 % Normal 07/17/2024 H[facility] RBC num Bld Auto 5.39 Mil/uL Normal 07/17/2024 4.5 - 6.2 H[facility]CT Basophils num Bld Auto 0.05 Thou/uL Normal 07/17/2024 0 - 0.2 [facility] Imm Granulocytes/leuk NFr Bld Auto 0.3 % Normal 07/17/2024 [facility] Encounters Encounter Type Encounter Reason Primary Diagnosis Location Date Emergency Hypertension Hypertension [facility] 07/17/2024 Care Team Organization Name Specialty Phone Email Start Date End Da dayday [facility] 2024 08/19/2024 [facility] 07/18/2024
--- OUTSIDE RECORDS SUMMARY | 2025-01-11 15:17 | XMS_ITS | Clinical Summary ---
Author Organization [facility] Address [address] [place] [address] Care Team Providers Care Study Abroad Advisor Name Role Phone Unavailable Primary Care Provider Unavailabl e Allergies No known active allergies Social History Tobacco Use Types Packs/Day Years [...] 83 07/17/2024 8:27 PM EDT Temperature 35.9 C (96.7 F) 07/17/2024 5:48 PM EDT Respiratory Rate 17 07/17/2024 8:27 PM EDT [...] of 3 - 19+ 3-dose series) 07/18/2014 HPV Vaccines (1 - 3-dose SCD M series) 07/18/2022 COVID-19 Vaccine ( - 2023-2 5 season) 2024 Influenza Vaccine 11/30/2024 Pneumococcal Vaccine: Pediat marleny (0-5 Years) and At-Risk Patients (6 to 49 Years) Aged Out No longer eligible b ased on patient's age to complete this topic Insurance [facility]
== END 2025-01-11 13:46 | disposition home or self-care (01) ==
PROVIDERS: PCP Nurse Practitioner Family; Visit Provider Nurse Practitioner Family
DX: I48.0 Paroxysmal atrial fibrillation (principal); I10 Essential (primary) hypertension
CPT/HCPCS: 93010; 99214; G2211

== ENCOUNTER → 2025-01-11 12:54 | Outpatient (BNVA) | payer SELFPAY | PROVIDERS: PCP Nurse Practitioner Family; Visit Provider Nurse Practitioner Family | DX: I48.0 Paroxysmal atrial fibrillation (principal) | CPT/HCPCS: 93005 ==